=== PATIENT | male | born 1990 | race Caucasian/White ===

== ENCOUNTER 2023-09-22 23:27 | Emergency (ER) | payer SELFPAY ==
[2023-09-22 23:39] VITALS: BP 164/77; PULSE 99; RESP 18; TEMP 98.2; BMI 25.0
== END 2023-09-23 00:45 | disposition left against medical advice (07) ==
LOC: JER 23:27
DX: Z53.21 Procedure and treatment not carried out due to patient leaving prior to being seen by health care provider (principal)
CPT/HCPCS: 99281-25